=== PATIENT | female | born 1955 | race Caucasian/White ===

== ENCOUNTER 2017-08-16 12:21 | Emergency (ER) | payer OTHER ==
[~2017-08-16] VITALS: Ht 154.9 cm; Wt 102.1 kg
[2017-08-16] MEDS ORDERED: LYRICA150 MG (12:44)
[2017-08-16] MEDS ORDERED: CRESTOR40 MG (12:44)
[2017-08-16] MEDS ORDERED: HYZAAR 100-251 EACH (12:44)
[2017-08-16] MEDS ORDERED: ZANTAC300 MG (12:45)
[2017-08-16] MEDS ORDERED: CIPRO500 MG PO (21:00)
[2017-08-16] MEDS ORDERED: INTESTINEX680 M1 PO (21:00)
[2017-08-16] MEDS ORDERED: ZANTAC150 MG PO (21:00)
[2017-08-16] MEDS ORDERED: FLAGYL500MG PO (21:00)
== END 2017-08-16 22:00 | disposition home or self-care (01) ==
LOC: ER 12:21
DX: K52.9 Noninfective gastroenteritis and colitis, unspecified (principal)

== ENCOUNTER 2021-05-23 22:47 | Emergency (ER) | payer OTHER ==
[~2021-05-23] VITALS: Ht 154.9 cm; Wt 101.6 kg
[~2021-05-23 22:47] MED LIST: CIPRO500 MG PO; CRESTOR40 MG; FLAGYL500MG PO; HYZAAR 100-251 EACH; INTESTINEX680 M1 PO; LYRICA150 MG; ZANTAC150 MG PO; ZANTAC300 MG
[2021-05-24] MEDS ORDERED: COZAAR100 MG (01:10)
[2021-05-24] MEDS ORDERED: NIFEDIPINE10 MG (01:10)
== END 2021-05-24 03:09 | disposition left against medical advice (07) ==
LOC: ER 22:47
DX: Z53.20 Procedure and treatment not carried out because of patient's decision for unspecified reasons (principal)

== ENCOUNTER 2023-05-29 12:00 | Outpatient (CLI) | payer OTHER ==
[~2023-05-29 12:00] MED LIST changes: +COZAAR100 MG; +NIFEDIPINE10 MG
== END 2023-05-29 12:02 | disposition home or self-care (01) ==
LOC: SONOGRAMA 12:00
PROVIDERS: ATTEND Pathology Anatomic Pathology & Clinical Pathology
DX: E04.1 Nontoxic single thyroid nodule (principal); D44.0 Neoplasm of uncertain behavior of thyroid gland; D34 Benign neoplasm of thyroid gland